=== PATIENT | male | born 1930 | race Caucasian/White ===

== ENCOUNTER → 2016-08-21 | Outpatient (REF) | payer MEDICARE, BC ==
[~2016-08-21] MED LIST: AMLO5TAB2 PO; ASPI325T PO; CHOL4PW PO; IBUPOTC PO; MICA80TA PO; MULTCAP PO; NEXI40CA PO; NYST50SS SS; PERC5TAB6 PO; PRESCAP6 PO; TRIX0.022 TOP; TYLE325T5 PO; URSO300C3 PO; [UNRECOGNIZED DRUG - CODE] PO
[2016-08-21 18:31] LABS: ANION GAP 8 MEQ/L (8-16); BLOOD UREA NITROGEN 29 MG/DL (7-18); CALCIUM LEVEL 8.7 MG/DL (8.8-10.2); CARBON DIOXIDE LEVEL 27 MEQ/L (21-32); CHLORIDE LEVEL 108 MEQ/L (98-107); CREATININE FOR GFR 1.07 MG/DL (0.70-1.30); GLOMERULAR FILTRATION RATE > 60.0 (>35); GLUCOSE, FASTING 84 MG/DL (83-110); POTASSIUM SERUM 4.5 MEQ/L (3.5-5.1); SODIUM LEVEL 143 MEQ/L (136-145)
[2016-08-21 19:20] LABS: MEAN CORPUSCULAR HEMOGLOBIN 19.4 pg (27.0-33.0); MEAN CORPUSCULAR HGB CONC 29.1 g/dl (32.0-36.5); MEAN CORPUSCULAR VOLUME 66.6 fl (80.0-96.0); RED CELL DISTRIBUTION WIDTH 16.8 % (11.5-14.5); WHITE BLOOD COUNT 3.9 K/mm3 (4.0-10.0)
== END ==
LOC: M LABSMT 17:10
PROVIDERS: ATTEND Urology
DX: N40.0 Benign prostatic hyperplasia without lower urinary tract symptoms (principal); Z12.5 Encounter for screening for malignant neoplasm of prostate

== ENCOUNTER → 2016-11-03 | Outpatient (CLI) | payer MEDICARE ==
--- NOTE | 2016-11-03 15:19 | REP ---
Right hip: Two views. History: Pain. Comparison study August 15, 2012. Findings: AP and frog-leg views of the right hip demonstrate diffuse osteopenia. Femoral head is smooth and rounded. Hip joint space is preserved. No erosive changes seen. Impression: Diffuse osteopenia. No acute bony abnormality. Signed by Humble Moreno MD 11/03/2016 05:02 P
== END ==
LOC: M WUC 13:27
PROVIDERS: ATTEND Physician Assistant
DX: M25.551 Pain in right hip (principal); M89.9 Disorder of bone, unspecified

== ENCOUNTER 2016-12-31 16:49 | Inpatient (IN) | payer MEDICARE ==
[~2016-12-31] VITALS: Ht 157.5 cm; Wt 55.7 kg
[2016-12-31] MEDS ORDERED: NS 500 ML IV ONE (18:15)
[2016-12-31 18:32] LABS: DIFF SLIDE NUMBER 164; MEAN CORPUSCULAR HEMOGLOBIN 19.5 pg (27.0-33.0); MEAN CORPUSCULAR HGB CONC 31.1 g/dl (32.0-36.5); MEAN CORPUSCULAR VOLUME 62.5 fl (80.0-96.0); PLATELET COUNT, AUTOMATED 397 k/mm3 (150-450); RED CELL DISTRIBUTION WIDTH 15.7 % (11.5-14.5); WHITE BLOOD COUNT 4.7 K/mm3 (4.0-10.0)
[2016-12-31] MEDS ORDERED: PANTOPRAZOLE 40MG INJ (PROTONIX) (C9113) IV ONE (18:45)
[2016-12-31 18:52] LABS: ALBUMIN 3.4 GM/DL (3.2-5.2); ALBUMIN/GLOBULIN RATIO 0.89 (1.00-1.93); ALKALINE PHOSPHATASE 109 U/L (45-117); ALT/SGPT 15 U/L (12-78); AMYLASE 62 U/L (25-115); ANION GAP 4 MEQ/L (8-16); AST/SGOT 9 U/L (15-37); BILIRUBIN,DIRECT < 0.1 MG/DL (0.0-0.2); BILIRUBIN,TOTAL 0.3 MG/DL (0.2-1.0); BLOOD UREA NITROGEN 34 MG/DL (7-18); CARBON DIOXIDE LEVEL 25 MEQ/L (21-32); CHLORIDE LEVEL 104 MEQ/L (98-107); CREATININE FOR GFR 1.65 MG/DL (0.70-1.30); GLOMERULAR FILTRATION RATE 42.2 (>35); GLUCOSE, FASTING 96 MG/DL (83-110); POTASSIUM SERUM 4.3 MEQ/L (3.5-5.1); SODIUM LEVEL 133 MEQ/L (136-145); TOTAL PROTEIN 7.2 GM/DL (6.4-8.2)
[2016-12-31] MEDS: NS 1,000 ML IV SCH (19:00)
[2016-12-31 19:03] LABS: EOSINOPHILS 4 % (0-5)
[2016-12-31 19:04] LABS: ANISOCYTOSIS 1+; MICROCYTOSIS 3+; POIKILOCYTOSIS 2+
[2016-12-31 19:05] LABS: OVALOCYTES 2+; SCHISTOCYTES 2+; TEAR DROP CELLS 2+
[2016-12-31 19:12] LABS: BURR CELLS 1+
--- NOTE | 2016-12-31 19:30 | REPUSA ---
CLINICAL HISTORY: AMS. TECHNIQUE: Multiple axial CT images were obtained through the brain without IV contrast material. COMMENTS: There is normal configuration of sella turcica. There are no intra or extra-axial collections. There is no mass effect or midline shift. There is no evidence of hematoma formation. No hydrocephalus is p resent. The ventricles are symmetrical. No abnormal calcifications are present. There is diffuse age-appropriate cerebellar and cerebral atrophy with proportionally dilated ventricl es and cortical sulci. There are bilateral periventricular and subcortical white matter hypolucencies compatible with chroni c microvascular disease. Otherwise, no significant focal abnormalities are seen either in the posterior fossa or supratentoria l compartment. IMPRESSION: 1. Age-appropriate cerebellar and cerebral atrophy. 2. Chronic microvascular disease. 3. No evidence of acute intracranial pathology. Thank you for your kind referral of this patient.
[2016-12-31] MEDS ORDERED: NEXI20CA PO (19:39)
[2016-12-31] MEDS ORDERED: TYLE650T35 PO (19:39)
[2016-12-31] MEDS ORDERED: NS 1,000 ML IV SCH (19:56)
[2016-12-31] MEDS ORDERED: ACETAMINOPHEN TAB 650MG DOSE (2X325MG) PO PRN (20:00)
[2016-12-31 20:25] LABS: INR 1.08
--- NOTE | 2016-12-31 21:08 | HPEPDOC ---
General Date of Admission Dec 31, 2016 at 19:56 Primary Care Physician: Jr García Collins Attending Physician: TRUPTI MENCHACA MD Chief Complaint The patient is a 86-year-old male admitted with a reason for visit of Gi Bleed. History of Present Illness 86-year-old male with past medical history of hypertension, thalassemia minor, GERD, and hx of cholangitis with subsequent ERCP, papillotomy for CBD stenosis in 2014 presented to the ER with a chief complaint of generalized weakness. The patient states that during this time he has felt increasingly lightheaded, dizzy , with mild shortness of breath. He also states that he has been having intermittent abdominal pain across the lower abdominal quadrants, 5 out of 10 in intensity with decreased appetite. He states that he has lost approximately 10 pounds in the last 6-8 weeks. He also states that he has been having loose nonbloody stools for the last few weeks. He denies any black-colored stools He denies any complaints of fevers, chills, chest pain, palpitations, or any nausea /vomiting. In the ER, the patient was noted to be significantly anemic with a hemoglobin count of 4.8. A rectal exam done in the ER revealed brown colored stool which was noted to be heme positive. The patient denied any active or otherwise overt sources of bleeding. The patient will be admitted to the hospitalist service for further evaluation and management. Home Medications Scheduled (Preservision Areds 2) 1 Cap Cap, 1 CAP PO BID, (Reported) Esomeprazole Magnesium Trihydr (Nexium) 20 Mg Cap, 20 MG PO DAILY, (Reported) Telmisartan (Micardis) 80 Mg Tab, 80 MG PO DAILY, (Reported) Ursodiol (Ursodiol) 300 Mg Cap, 300 MG PO BID, (Reported) Scheduled PRN Acetaminophen (Tylenol 8 Hour Arthritis) 650 Mg Tab, 650 MG PO Q8H PRN for PAIN, (Reported) Allergies Coded Allergies: Codeine (Verified Adverse Reaction, Mild, CONSTIPATION, 10/15/12) Past Medical History Medical History As noted in HPI. Surgical History Lumbar fusion, cholecystectomy, ERCP with papillotomy for CBD stenosis, left hip femoral pinning Family History Significant Family History: No pertinent family hx Social History * Smoker: former Smoker Alcohol: Denies Drugs: denies Review of Symptoms Other systems 10 point review of systems negative unless otherwise specified in HPI. Physical Examination General Exam: Positive: Alert, Cooperative, No Acute Distress, Other (patient appears pale on examination.) ENT Exam: Positive: Atraumatic, Other ENT (dry mucous membranes) Neck Exam: Negative: JVD Chest Exam: Positive: Clear to auscultation, Normal air movement Heart Exam: Positive: Rate Normal, Normal S1, Normal S2 Telemetry: Positive: Sinus Abdomen Exam: Positive: Soft, Negative: Tenderness Extremity Exam: Negative: Tenderness, Swelling Vital Signs Vital Signs Date Time Temp Pulse Resp B/P (MAP) Pulse Ox O2 Delivery O2 Flow Rate FiO2 12/31/16 17:39 12/31/16 16:51 98.3 69 18 94 Room Air Laboratory Data Labs 24H Laboratory Tests 2 12/31/16 18:15: Neutrophils 82H, Lymphocytes (Manual) 8L, Monocytes (Manual) 6, Eosinophils ( Manual) 4, Platelet Estimate NORMAL, Poikilocytosis 2+, Anisocytosis 1+, Microcytosis 3+, Tear Drop Cells 2+, Ovalocytes 2+, Ozark Cells 1+, Schistocytes 2+, Prothrombin Time 14.1, Prothromb Time International Ratio 1.08, Activated Partial Thromboplast Time 39.7H, Anion Gap 4L, Glomerular Filtration Rate 42.2, Lactic Acid Level 1.0, Calcium Level 8.0L, Aspartate Amino Transf (AST/SGOT) 9L , Alanine Aminotransferase (ALT/SGPT) 15, Alkaline Phosphatase 109, Total Bilirubin 0.3, Direct Bilirubin < 0.1, Total Creatine Kinase 43, Creatine Kinase MB 2.4, Creatine Kinase MB Relative Index 5.58H, Troponin I 0.09, Total Protein 7.2, Albumin 3.4, Albumin/Globulin Ratio 0.89L, Amylase Level 62, Lipase 127 CBC/BMP Laboratory Tests 12/31/16 18:15 Red Blood Count 2.45 L, Mean Corpuscular Volume 62.5 L, Mean Corpuscular Hemoglobin 19.5 L, Mean Corpuscular Hemoglobin Concent 31.1 L, Red Cell Distribution Width 15.7 H Microbiology Microbiology 12/31/16 Blood Culture, Received Pending 12/31/16 Blood Culture, Received Pending Plan / VTE VTE Prophylaxis Ordered?: Yes (SCDs) Plan Plan Acute anemia likely 2/2 GI loss Hemoglobin noted to be 4.8 Patient with a history of thalassemia minor with a baseline hemoglobin between 9 and 10 Looking back in the patient's chart it appears that the patient has had 2 EGDs in the past (2009 & 2014) by Dr. Gomez, and the results were notable for gastritis The patient last had a colonoscopy done in [address] Gomez, and this revealed nonbleeding internal hemorrhoids with diverticular disease At this point given the patient's significant drop in hemoglobin, heme positive stools, and associated weight loss--there is a concern for underlying malignancy that warrants further endoscopic investigation We will transfuse the patient 4 units Keep nothing by mouth We will order a CT scan of the abdomen/pelvis to rule out any intra-abdominal bleeding source Consult Dr. Gomez of GI in the morning for further evaluation. Acute kidney injury likely secondary to intravascular volume depletion Serum creatinine 1.65 (baseline creatinine 1.1-1.2) We will transfuse the patient 4 units of packed red blood cells Gentle IV fluid hydration ordered to continue thereafter We will hold any nephrotoxins Monitor I's and O's We'll continue to monitor the patient's BMP Borderline elevated troponin level likely 2/2 Demand Ischemia from underlying Anemia Troponin noted to be 0.9, EKG with no acute ST changes Patient without any acute complaints of chest pain at this time We will serially trend troponin markers Hypertension We will hold the patient's ARB at this time given HRAISH History of thalassemia minor Baseline hgb 9-10 Hx of cholangitis with subsequent ERCP, papillotomy for CBD stenosis in 2014 GERD IV Protonix DVT prophylaxis SCDs/TEDs This patient will be admitted under the service of Dr. Menchaca, who will begin to follow the patient on 01/01/17 at 7 AM. MICHAEL GARCIA MD Dec 31, 2016 21:08
[2016-12-31 21:30] VITALS: BP 121/60
[2016-12-31 22:15] VITALS: BP 121/60
--- NOTE | 2016-12-31 22:41 | REPUSA ---
CT of the abdomen and pelvis without contrast Clinical statement: anemia. Technique: Multiple axial CT images were obtained from the base of the lungs to the floor of the pelv is utilizing 5 mm axial slices without administration of contrast. Coronal and sagittal reconstructio ns were also obtained. Comparison: 04/06/2005. Findings: Chest: The visualized lung bases are clear. Abdomen: The kidneys are normal in size bilaterally. There is no evidence of hydronephrosis. Numerous kidney stones are seen bilaterally measuring up to 7 mm Calcifications and areas of hyperdensity are seen in the renal pelvises bilaterally. There is a simple right renal cyst. The patient is status po st cholecystectomy. There is mild iatrogenic biliary pneumatosis. The liver, spleen, pancreas, and ad renal glands are unremarkable. The aorta demonstrates normal caliber and contour. There is no abdomin al lymphadenopathy or ascites. Pelvis: The bowel is unremarkable, with no obstructive or inflammatory changes. The urinary bladder i s within normal limits. There is no pelvic lymphadenopathy or ascites. There is a low attenuation les ion within the prostate. Bones: There are no suspicious osseous abnormalities seen. Severe multilevel degenerative disc diseas e is noted throughout the lumbar spine, with levoscoliosis noted.. Moderate chronic compression fract ures are notedat L1 and L5. Impression: 1. No evidence of acute hemorrhage. 2. No obstructive or inflammatory bowel changes. 3. Bilateral nonobstructing nephrolithiasis.Bilateral nephrocalcinosis. Right renal cyst. 4. Scoliosis with severemultilevel degenerative disc disease.
[2016-12-31 23:31] VITALS: BP 101/65
[2017-01-01 03:51] VITALS: BP 122/58
[2017-01-01 04:10] LABS: MEAN CORPUSCULAR HEMOGLOBIN 19.7 pg (27.0-33.0); MEAN CORPUSCULAR VOLUME 63.5 fl (80.0-96.0); RED CELL DISTRIBUTION WIDTH 16.4 % (11.5-14.5); WHITE BLOOD COUNT 2.8 K/mm3 (4.0-10.0)
[2017-01-01 04:24] LABS: CALCIUM LEVEL 7.9 MG/DL (8.8-10.2); CREATININE FOR GFR 1.47 MG/DL (0.70-1.30); GLOMERULAR FILTRATION RATE 48.2 (>35); POTASSIUM SERUM 4.5 MEQ/L (3.5-5.1)
--- NOTE | 2017-01-01 07:49 | REP ---
CHEST X-RAY: Single view. HISTORY: Weakness. Comparison study: April 23, 2016. FINDINGS: EKG monitoring electrodes overlie the chest. The lungs are symmetrically aerated and free of infiltrate. Pleural angles are sharp. Heart is at the upper range of normal in size unchanged. Pulmonary vasculature is not increased. IMPRESSION: No acute disease. Signed by Humble Moreno MD 01/01/2017 08:29 A
[2017-01-01 07:51] VITALS: BP 124/58
[2017-01-01] MEDS: NS 1,000 ML IV SCH (08:07)
[2017-01-01] MEDS: PANTOPRAZOLE 40MG INJ (PROTONIX) (C9113) IV SCH ×2 (09:21→23:12)
[2017-01-01 11:31] VITALS: BP 100/59
--- NOTE | 2017-01-01 12:02 | IPN ---
DATE: 01/01/2017 This is an 86-year-old male who was admitted with acute anemia with a hemoglobin of 4.8. He has a history of thalassemia minor with a baseline hemoglobin between 9 and 10. He was typed and cross matched to receive 4 units of packed cells. His vital signs have remained stable. I was notified by the lab and the nursing production supervisor that there was difficulty with cross matching his blood due to antibodies. I discussed with Dr. Posadas, the hospitalist, and decision was made to have the blood sent stat to [facility] in [place], [place], and to transfer the patient to [place] so that when the blood was matched and ready he would be there and could begin immediately to receive transfusions. He had no hematochezia or melena. He was not having any hematemesis or hemoptysis. He was currently clinically stable. His heart rate was 72 to 80. His blood pressure was around 100 to 115 over 60s. I called [facility] in [place]. They had no beds. I called [facility] and I spoke with the transfer nurse Jameson who then had Dr. Brown call me. I spoke with him at approximately 1:30 a.m. He felt that the patient was stable and did not need to go at that time to a higher level of care. I discussed the need for getting him there as we were three hours away so that when the blood was ready he could get it immediately. He stated to monitor the patient and call him if the patient deteriorated and that he felt that the patient was stable and to check again in three to four hours. The patient has remained stable. The patient and his son are agreeable to have him transfer to expedite the transfusion. Will recontact [facility]. Have scheduled a repeat hemoglobin and will continue to monitor the patient closely.
--- NOTE | 2017-01-01 13:11 | IPN ---
DATE OF EXAMINATION: 01/01/2017 Overnight events, the patient was unable to receive blood products, as he was Marciano positive. Our laboratory sent his blood sample out to [place], who are working on obtaining appropriate blood products for him. I did call and request an update from them this morning. They have had a specialist come in since 1 o'clock in the morning and are working to find an appropriate match. There is no appropriate match as of yet. Efforts were made to transfer the patient to [facility] or [facility] and [facility] in [place] in order to have the patient be closer to the blood products that we are hoping will be made available in the future so he can receive them as soon as possible. However, all three of these facilities declined to accept this patient, with them not having available beds or not seeing an indication for a higher level of care. SUBJECTIVE: The patient reports that he is feeling quite well. He tells me that his symptoms are improved and that he is not in any difficulty, not having any shortness of breath. No headache, dizziness, nausea, or vomiting while he is laying at rest. He denies any other complaints other than he is frustrated that he has not received blood yet. OBJECTIVE: VITAL SIGNS: Temperature 98. Pulse 82. Respiratory rate 18. Blood pressure (BP) 124/58. Oxygen (O2) saturation 93% on room air. GENERAL: He is a pale elderly man. Laying flat in bed. In no distress. HEENT: He has conjunctival pallor. Moist mucous membranes. No elevation in central venous pressure (CVP). CARDIOVASCULAR EXAMINATION: S1, S2. Regular. He is not tachycardic. RESPIRATORY EXAMINATION: Is clear. His orthostatics were positive. ABDOMINAL EXAMINATION: Is scaphoid. EXTREMITIES: No clubbing, cyanosis, or edema. LABORATORY STUDIES: WBC 2.8, hemoglobin 4.3 down from 4.8, hematocrit 13.9, platelet count 352. Chemistry panel: Sodium 141, potassium 4.5, chloride 11, bicarbonate 28, BUN 31, creatinine 1.4 down from 1.6. Two sets of cardiac enzymes were negative. Lipase was within normal limits. INR is 1.0. Blood cultures were drawn and are pending. IMAGING: The patient did have a CT scan of the abdomen and pelvis, which revealed no evidence of acute hemorrhage, no obstructive or inflammatory bowel changes, bilateral nonobstructing nephrolithiasis, scoliosis. The patient had a chest x-ray that revealed no acute disease. He did have a CT scan of the head that revealed age-appropriate cerebellar and cerebral atrophy, chronic microvascular disease. No evidence of acute intracranial pathology. ASSESSMENT AND PLAN: This is an 86-year-old man with a history of thalassemia presenting now with what most likely is gastrointestinal (GI) bleed and symptomatic anemia. PROBLEMS: 1. Symptomatic anemia and likely gastrointestinal bleed. The patient is occult stool for blood positive. He has had two esophagogastroduodenoscopies (EGDs) and colonoscopy by Dr. Gomez in the past. Most recently, in 2014. I did speak with Dr. Goemz this morning, who has agreed to see the patient in consultation. He has a history of gastritis and, as such, he is on a proton pump inhibitor (PPI) intravenous (IV) twice a day. His orthostatics are positive. As such, we will keep him on bedrest and laying flat. He is on normal saline. We are unable to provide him with blood products, but we are working on obtaining these and appropriate match through the [facility] in [place]. As soon as these are available and can be transported to us, he will receive them. With activity, he is significantly symptomatic with his anemia, given his advanced age. His condition and the longer he goes without blood is concerning. I did speak with his son, Chalino, regarding this, as well. Should he begin to feel symptomatic or have any evidence of acute hemorrhage, he would likely require uncrossed matched blood transfusion, and the risks of this were discussed with both him and his son. 2. Acute kidney injury, improving with fluid resuscitation. Will continue with IV fluids. 3. Hypertension. We are holding his angiotensin receptor destiney (ARB), given acute kidney injury. 4. History of thalassemia minor. The patient's baseline hemoglobin is approximately 9. At this time, he has acute on chronic anemia likely secondary to acute blood loss. 5. Deep venous thrombosis (DVT) prophylaxis. Sequentials and thromboembolic deterrents (TEDs). No pharmacological agents secondary to ongoing bleeding.
[2017-01-01 16:00] VITALS: BP 114/58
[2017-01-01] MEDS ORDERED: PANTOPRAZOLE 40MG INJ (PROTONIX) (C9113) IV SCH (18:00)
[2017-01-01] MEDS: diphenhydrAMINE INJ 50MG/ML VIAL (J1200) IV ONE ×2 (20:30→23:12)
[2017-01-01] MEDS ORDERED: diphenhydrAMINE INJ 50MG/ML VIAL (J1200) As Ordered ONE (20:32)
[2017-01-01] MEDS ORDERED: methylPREDNISolone INJ 125 MG/2 ML VIAL (J2930) As Ordered ONE (20:32)
[2017-01-01 23:00] VITALS: BP 99/59
--- NOTE | 2017-01-01 23:00 | REPUSA ---
CT of the head Clinical history: altered mental status. Protocol: Multiple axial CT images obtained with 5 mm slice thickness were obtained through the head without administration of contrast. Comparison: 12/31/2016. Findings: The ventricles and sulci are symmetric but prominent in size bilaterally. There are periven tricular areas of low attenuation throughout the deep white matter. There is no evidence of acute hem orrhage or infarct. There is no midline shift, mass effect, or extra-axial fluid collection. The osse ous structures are unremarkable. The visualized paranasal sinuses and mastoid air cells are clear. Impression: No acute hemorrhage or infarct. 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
[2017-01-01] MEDS ORDERED: methylPREDNISolone INJ 125 MG/2 ML VIAL (J2930) IV ONE (23:15)
[2017-01-02] VITALS (8 sets, daily range): BP systolic 94–123; BP diastolic 46–60
[2017-01-02 05:41] LABS: MEAN CORPUSCULAR HEMOGLOBIN 22.5 pg (27.0-33.0); MEAN CORPUSCULAR HGB CONC 32.8 g/dl (32.0-36.5); MEAN CORPUSCULAR VOLUME 68.6 fl (80.0-96.0); RED CELL DISTRIBUTION WIDTH 22.9 % (11.5-14.5); WHITE BLOOD COUNT 5.6 K/mm3 (4.0-10.0)
[2017-01-02 06:06] LABS: CALCIUM LEVEL 7.8 MG/DL (8.8-10.2); CREATININE FOR GFR 1.46 MG/DL (0.70-1.30); GLOMERULAR FILTRATION RATE 48.6 (>35); POTASSIUM SERUM 4.8 MEQ/L (3.5-5.1)
[2017-01-02] MEDS ORDERED: FAMOTIDINE INJ 20MG/2ML VIAL (S0028) IVP ONE (08:00)
[2017-01-02] MEDS ORDERED: methylPREDNISolone INJ 125 MG/2 ML VIAL (J2930) IV ONE (08:00)
[2017-01-02] MEDS ORDERED: diphenhydrAMINE INJ 50MG/ML VIAL (J1200) IV ONE (08:00)
--- NOTE | 2017-01-02 09:04 | ECGEPIP ---
Stationary ECG Study [facility] - ED Test Date: 2016-12-31 Pat Name: JESUS MATA Department: Room: - Gender: M [facility] Programmer: JKoby : [id number] Requested By: Mynor Blackwell Order Number: [id number] Reading MD: Ingrid Perrin Measurements Intervals [place] Rate: 73 P: 35 FL: 154 QRS: 21 QRSD: 98 T: 32 QT: 380 QTc: 421 Interpretive Statements SINUS RHYTHM POSSIBLE LEFT ATRIAL ENLARGEMENT NSTTW ABNORMALITY LESS ECTOPY COMPARED 03/21/16 Electronically Signed On 01-02-2017 9:04:33 EDT by Ingrid Perrin
[2017-01-02] MEDS: PANTOPRAZOLE 40MG INJ (PROTONIX) (C9113) IV SCH ×2 (09:19→21:38)
[2017-01-02] MEDS ORDERED: FUROSEMIDE 40 MG/4 ML VIAL (J1940) IV ONE (09:30)
--- NOTE | 2017-01-02 10:02 | CR ---
DATE OF CONSULTATION: 01/01/2017 This is an 86-year-old white male who is admitted to [facility] on 12/31 for evaluation of anemia and shortness of breath. The patient has a multiple medical history, including hypertension, thalassemia minor, reflux and a history of cholangitis, status post ERCP in 2014. The patient had common bile duct stones and papillotomy and bile duct clearing was performed. At that time, the patient also had an upper endoscopy to evaluate a history of melena and <<0:52>> gastritis. His last colonoscopy was in 2009, which was normal except for hemorrhoids and diverticulosis. No tumors or masses were seen. The patient presents now with increasing lightheadedness, dizziness, shortness of breath and has intermittent epigastric pain. The patient apparently had a decreased appetite. Over the last 8 weeks, she has lost approximately 6 to 8 pounds. There is no history of melena, hematochezia or bright red blood per rectum. No hematemesis. No fevers, night sweats or shaking chills. The patient normally runs a hemoglobin of 10 due to thalassemia. Hemoglobin currently is 4.3. The patient was heme positive in the emergency room. The patient is being seen for further evaluation of his anemia. CURRENT MEDICATIONS: Include Nexium and ursodiol for his history of common bile duct stones. ALLERGIES: CODEINE: PAST SURGICAL HISTORY Includes: 1. Lumbar fusion. 2. Cholecystectomy. 3. ERCP and papillotomy. 4. Left hip femoral pinning. FAMILY HISTORY: Noncontributory to the above problems. SOCIAL HISTORY: Negative. REVIEW OF SYSTEMS: 10-point review of systems was negative to the above medical problem. PHYSICAL EXAMINATION: GENERAL: Thin, white male in no obvious acute distress. Appears stated age. CHEST: Clear to auscultation. CARDIOVASCULAR EXAM: Showed regular rhythm. No murmurs or gallops. Normal physiological split, S1, S2. ABDOMEN: Soft, nontender. No masses, guarding, rebound, hepatosplenomegaly. Bowel sounds positive. DIAGNOSTIC STUDIES: Showed labs of hemoglobin of 4.3, hematocrit of 13.9, platelets of the 352,000. Coagulation is normal. Chemistry was normal on admission. Amylase, lipase were normal. Albumin is low at 3.4. Liver functions are normal. BUN was 31, creatinine is 1.47. The patient had abdominal CT, which was negative for any pathology. CT of the head on 12/31 was also performed, which was negative for any major pathology. ANALYSIS: 1. Anemia of unknown etiology. At the present time, the plan will be to wait for the patient to receive some blood prior to setting him up for upper endoscopy on 01/02/2070 possible differential diagnosis would be gastric ulcer versus gastric tumor and possible ulcer esophagitis. PLAN: As above.
--- NOTE | 2017-01-02 18:47 | IPNPDOC ---
Subjective Date Seen The patient was seen on 01/02/17. Subjective Chief Complaint/HPI The patient is a 86-year-old male admitted with a reason for visit of Gi Bleed. Events since last encounter no acute events overnight. temp of 100 during transfusion and sob overnight. cxr neg, transfusion reaction neg, given solumedrol and benadryl. Currently, denied cp, abd pain, sbo, n/v. General: Reports: Malaise Constitutional: Denies: Chills, Fever Eyes: Denies: Pain ENT: Denies: Head Aches Skin: Denies: Rash, Lesions Pulmonary: Denies: Dyspnea, Cough Cardiovascular: Denies: Chest Pain, Palpitations Gastrointestinal: Denies: Nausea, Vomiting Objective Physical Examination General Exam: Positive: Alert, Cooperative, No Acute Distress, Other (patient appears pale on examination.) Eye Exam: Positive: PERRLA ENT Exam: Positive: Atraumatic, Other ENT (dry mucous membranes) Neck Exam: Negative: JVD Chest Exam: Positive: Clear to auscultation, Normal air movement Heart Exam: Positive: Rate Normal, Normal S1, Normal S2 Telemetry: Positive: Sinus Abdomen Exam: Positive: Soft, Negative: Tenderness Extremity Exam: Negative: Tenderness, Swelling Assessment /Plan Assessment 86-year-old male with past medical history of hypertension, thalassemia minor, GERD, and hx of cholangitis with subsequent ERCP, papillotomy for CBD stenosis in 2014 presented to the ER with a chief complaint of generalized weakness found anemia with FOBT + GI bleed Problems (1) GI bleeding Status: Acute Problem Text: FOBT +, Dr Gomez consulted. h/o transfusion reaction, blood order from [place]. PPI BID s/p 1 U PRBC given given lasix, bendary, solumedrol, pepcid, tylenol prior to transfusion, 2U PRBC today serial hh (2) Anemia Status: Acute Problem Text: 2/2 to gi bleed, likely slow transfusion reaction history, d/w Dr Godinez pre-transfusion meds as above LDH haptoglobin, smears f/u hh (3) GERD (gastroesophageal reflux disease) Status: Chronic Problem Text: ppi (4) Hypertension Status: Chronic Problem Text: hold med given HARISH (5) Thalassemia trait Status: Chronic Problem Text: chronic anemia, baseline hgb 9 (6) HARISH (acute kidney injury) Problem Text: f/u Cr, bun, IVF Plan/VTE VTE Prophylaxis Ordered?: Yes (SCDs) Disposition EGD, clinical improvement VS, I&O, 24H, Fishbone Vital Signs/I&O Vital Signs Date Time Temp Pulse Resp B/P (MAP) Pulse Ox O2 Delivery O2 Flow Rate FiO2 01/02/17 16:01 Nasal Cannula 2.0 01/02/17 16:00 97.8 59 18 100/51 (67) 95 I&O- Last 24 Hours up to 6 AM 01/02/17 06:00 Intake Total 855 ml Output Total 950 ml Balance -95 ml Laboratory Data 24H LABS Laboratory Tests 2 01/01/17 20:46: Total Creatine Kinase 72, Creatine Kinase MB 3.1, Creatine Kinase MB Relative Index 4.30H, Troponin I 0.21#H 01/02/17 05:08: Anion Gap 7L, Glomerular Filtration Rate 48.6, Blood Urea Nitrogen 30H, Creatinine 1.46H, Sodium Level 140, Potassium Level 4.8, Chloride Level 110H, Carbon Dioxide Level 23, Calcium Level 7.8L 01/02/17 18:01: CBC/BMP Laboratory Tests 01/01/17 20:45 01/02/17 05:08 Red Blood Count 2.44 L, Mean Corpuscular Volume 68.6 #L, Mean Corpuscular Hemoglobin 22.5 L, Mean Corpuscular Hemoglobin Concent 32.8, Red Cell Distribution Width 22.9 H, Calcium Level 7.8 L Microbiology Microbiology 12/31/16 Blood Culture - Preliminary, Resulted No Growth after 48 hours. All Specime... 12/31/16 Blood Culture - Preliminary, Resulted No Growth after 48 hours. All Specime... 01/01/17 Urine Culture - Final, Complete GABINO MCKINNEY MD Jan 02, 2017 18:47
[2017-01-02] MEDS: NS 1,000 ML IV SCH ×2 (20:03→21:00)
[2017-01-02 21:34] LABS: REASON FOR REVIEW COMPREHENSIVE REVIEW
[2017-01-03] VITALS (10 sets, daily range): BP systolic 100–134; BP diastolic 53–93
[2017-01-03 05:24] LABS: MEAN CORPUSCULAR HGB CONC 34.1 g/dl (32.0-36.5); MEAN CORPUSCULAR VOLUME 73.4 fl (80.0-96.0); RED CELL DISTRIBUTION WIDTH 22.9 % (11.5-14.5); WHITE BLOOD COUNT 5.6 K/mm3 (4.0-10.0)
[2017-01-03 05:27] LABS: CALCIUM LEVEL 7.9 MG/DL (8.8-10.2); CREATININE FOR GFR 1.38 MG/DL (0.70-1.30); GLOMERULAR FILTRATION RATE 51.9 (>35); POTASSIUM SERUM 4.2 MEQ/L (3.5-5.1)
[2017-01-03] MEDS ORDERED: FAMOTIDINE INJ 20MG/2ML VIAL (S0028) IVP SCH (07:00)
[2017-01-03] MEDS ORDERED: diphenhydrAMINE INJ 50MG/ML VIAL (J1200) IV SCH (07:00)
[2017-01-03] MEDS ORDERED: methylPREDNISolone INJ 40 MG/1 ML VIAL (J2920) IV SCH (07:00)
[2017-01-03] MEDS ORDERED: FUROSEMIDE 20 MG/2 ML VIAL (J1940) IV SCH (07:00)
[2017-01-03] MEDS: PANTOPRAZOLE 40MG INJ (PROTONIX) (C9113) IV SCH ×2 (08:19→20:16)
[2017-01-03] MEDS ORDERED: PROPOFOL 200 MG/20 ML VIAL As Ordered ONE (14:40)
[2017-01-03] MEDS: NS 1,000 ML IV SCH (15:24)
--- NOTE | 2017-01-03 17:30 | IPNPDOC ---
Subjective Date Seen The patient was seen on 01/03/17. Subjective Chief Complaint/HPI The patient is a 86-year-old male admitted with a reason for visit of Gi Bleed. Events since last encounter No melena, denied cp, sob, abd pain. n/v, reported hungry. strength improved General: Denies: Chills Constitutional: Denies: Chills, Fever Eyes: Denies: Pain, Vision change ENT: Denies: Head Aches Skin: Denies: Rash, Lesions Pulmonary: Denies: Dyspnea, Cough Cardiovascular: Denies: Chest Pain, Palpitations Gastrointestinal: Denies: Nausea, Vomiting, Abdominal Pain Objective Physical Examination General Exam: Positive: Alert, Cooperative, No Acute Distress, Other (patient appears pale on examination.) Eye Exam: Positive: PERRLA ENT Exam: Positive: Atraumatic, Other ENT (dry mucous membranes) Neck Exam: Negative: JVD Chest Exam: Positive: Clear to auscultation, Normal air movement Heart Exam: Positive: Rate Normal, Normal S1, Normal S2 Telemetry: Positive: Sinus Abdomen Exam: Positive: Soft, Negative: Tenderness Extremity Exam: Negative: Tenderness, Swelling Assessment /Plan Assessment 86-year-old male with past medical history of hypertension, thalassemia minor, GERD, and hx of cholangitis with subsequent ERCP, papillotomy for CBD stenosis in 2014 presented to the ER with a chief complaint of generalized weakness found anemia with FOBT + GI bleed Problems (1) GI bleeding Status: Acute Problem Text: FOBT +, Dr Gomez consulted. h/o transfusion reaction, blood order from [place]. PPI BID s/p 3 U PRBC given given lasix, bendary, solumedrol, pepcid, tylenol prior to transfusion, will given 1U PRBC today for a total of 4 U serial hh s/p EGD showed gastritis regular diet (2) Anemia Status: Acute Problem Text: 2/2 to gi bleed, likely slow transfusion reaction history, d/w Dr Godinez pre-transfusion meds as above LDH haptoglobin, smears f/u hh (3) GERD (gastroesophageal reflux disease) Status: Chronic Problem Text: ppi (4) Hypertension Status: Chronic Problem Text: hold med given HARISH (5) Thalassemia trait Status: Chronic Problem Text: chronic anemia, baseline hgb 9 (6) HARISH (acute kidney injury) Problem Text: f/u Cr, bun, IVF Plan/VTE VTE Prophylaxis Ordered?: Yes (SCDs) Disposition pending stable hh, PT and final gi Rec VS, I&O, 24H, Fishbone Vital Signs/I&O Vital Signs Date Time Temp Pulse Resp B/P (MAP) Pulse Ox O2 Delivery O2 Flow Rate FiO2 01/03/17 16:15 97.4 73 20 128/60 (82) 96 Room Air 01/03/17 14:55 2.0 I&O- Last 24 Hours up to 6 AM 01/03/17 06:00 Intake Total 2670 ml Output Total 1450 ml Balance 1220 ml Laboratory Data 24H LABS Laboratory Tests 2 01/02/17 18:01: Differential Slide Review Report, Differential Pathologist's Review COMPREHENSIVE REVIEW, Peripheral Blood Smear Path Consult PERIPHERAL SMEAR, Lactate Dehydrogenase 257H 01/03/17 04:49: Anion Gap 7L, Glomerular Filtration Rate 51.9, Blood Urea Nitrogen 37H, Creatinine 1.38H, Sodium Level 141, Potassium Level 4.2, Chloride Level 111H, Carbon Dioxide Level 23, Calcium Level 7.9L CBC/BMP Laboratory Tests 01/02/17 18:01 01/03/17 04:49 Red Blood Count 3.14 L, Mean Corpuscular Volume 73.4 L, Mean Corpuscular Hemoglobin 25.0 L, Mean Corpuscular Hemoglobin Concent 34.1, Red Cell Distribution Width 22.9 H, Calcium Level 7.9 L 01/03/17 15:48 Microbiology Microbiology 12/31/16 Blood Culture - Preliminary, Resulted No Growth after 48 hours. All Specime... 12/31/16 Blood Culture - Preliminary, Resulted No Growth after 48 hours. All Specime... 01/01/17 Urine Culture - Final, Complete GABINO MCKINNEY MD Jan 03, 2017 17:30
[2017-01-04 04:00] VITALS: BP 108/57
[2017-01-04 05:12] LABS: MEAN CORPUSCULAR HEMOGLOBIN 25.9 pg (27.0-33.0); MEAN CORPUSCULAR HGB CONC 34.6 g/dl (32.0-36.5); WHITE BLOOD COUNT 3.9 K/mm3 (4.0-10.0)
[2017-01-04 05:27] LABS: CALCIUM LEVEL 7.7 MG/DL (8.8-10.2); CREATININE FOR GFR 1.44 MG/DL (0.70-1.30); GLOMERULAR FILTRATION RATE 49.4 (>35); POTASSIUM SERUM 3.8 MEQ/L (3.5-5.1)
[2017-01-04] MEDS: NS 1,000 ML IV SCH (06:13)
[2017-01-04 08:00] VITALS: BP 150/62
[2017-01-04] MEDS: PANTOPRAZOLE 40MG INJ (PROTONIX) (C9113) IV SCH (08:30)
[2017-01-04] MEDS: SENOKOT S TAB PO SCH ×2 (08:30→22:18)
[2017-01-04] MEDS: TELMISARTAN 20 MG TAB PO SCH (10:31)
[2017-01-04 12:00] VITALS: BP 128/60
[2017-01-04 15:25] VITALS: BP 144/78
[2017-01-04 16:30] VITALS: BP 119/57
--- NOTE | 2017-01-04 17:29 | IPNPDOC ---
Subjective Date Seen The patient was seen on 01/04/17. Subjective Chief Complaint/HPI The patient is a 86-year-old male admitted with a reason for visit of Gi Bleed. Events since last encounter no acute events overnight, reported not liking the food, wanted to be discharged. Denied cp/abd pain/v/n/ sob, f/c Constitutional: Denies: Chills, Fever Skin: Denies: Rash, Lesions Pulmonary: Denies: Dyspnea, Cough Cardiovascular: Denies: Chest Pain, Palpitations Gastrointestinal: Denies: Nausea, Vomiting, Abdominal Pain, Diarrhea, Constipation Objective Physical Examination General Exam: Positive: Alert, Cooperative, No Acute Distress Eye Exam: Positive: PERRLA ENT Exam: Positive: Atraumatic, Other ENT (dry mucous membranes) Neck Exam: Negative: JVD Chest Exam: Positive: Clear to auscultation, Normal air movement Heart Exam: Positive: Rate Normal, Normal S1, Normal S2 Telemetry: Positive: Sinus Abdomen Exam: Positive: Soft, Negative: Tenderness Extremity Exam: Negative: Tenderness, Swelling Assessment /Plan Assessment 86-year-old male with past medical history of hypertension, thalassemia minor, GERD, and hx of cholangitis with subsequent ERCP, papillotomy for CBD stenosis in 2014 presented to the ER with a chief complaint of generalized weakness found anemia with FOBT + GI bleed Problems (1) GI bleeding Status: Acute Problem Text: FOBT +, Dr Gomez consulted. h/o transfusion reaction, blood order from [place]. PPI BID s/p 4 U PRBC given given lasix, bendary, solumedrol, pepcid, tylenol prior to transfusion, serial hh s/p EGD showed gastritis regular diet likely DC once pass pt (2) Anemia Status: Acute Problem Text: 2/2 to gi bleed, likely slow transfusion reaction history, d/w Dr Godinez pre-transfusion meds as above LDH haptoglobin, smears f/u hh (3) GERD (gastroesophageal reflux disease) Status: Chronic Problem Text: ppi (4) Hypertension Status: Chronic Problem Text: initally held, Micardis restarted (5) Thalassemia trait Status: Chronic Problem Text: chronic anemia, baseline hgb 9 (6) HARISH (acute kidney injury) Problem Text: f/u Cr, bun, IVF Plan/VTE VTE Prophylaxis Ordered?: Yes (SCDs) Disposition pending stable hh, and PT, d/w Dr Gomez VS, I&O, 24H, Fishbone Vital Signs/I&O Vital Signs Date Time Temp Pulse Resp B/P (MAP) Pulse Ox O2 Delivery O2 Flow Rate FiO2 01/04/17 15:25 98.0 80 18 144/78 (100) 98 Room Air 01/03/17 14:55 2.0 I&O- Last 24 Hours up to 6 AM 01/04/17 06:00 Intake Total 2160 ml Output Total 1100 ml Balance 1060 ml Laboratory Data 24H LABS Laboratory Tests 2 01/04/17 04:33: Anion Gap 5L, Glomerular Filtration Rate 49.4, Blood Urea Nitrogen 39H, Creatinine 1.44H, Sodium Level 142, Potassium Level 3.8, Chloride Level 111H, Carbon Dioxide Level 26, Calcium Level 7.7L CBC/BMP Laboratory Tests 01/04/17 04:33 Red Blood Count 3.20 L, Mean Corpuscular Volume 75.0 L, Mean Corpuscular Hemoglobin 25.9 L, Mean Corpuscular Hemoglobin Concent 34.6, Red Cell Distribution Width 23.0 H, Calcium Level 7.7 L 01/04/17 12:08 Microbiology Microbiology 12/31/16 Blood Culture - Preliminary, Resulted No Growth after 72 hours. All specime... 12/31/16 Blood Culture - Preliminary, Resulted No Growth after 72 hours. All specime... 01/01/17 Urine Culture - Final, Complete GABINO MCKINNEY MD Jan 04, 2017 17:29
[2017-01-04 22:00] VITALS: BP 112/58
[2017-01-04] MEDS: PANTOPRAZOLE 40MG TAB (PROTONIX) PO SCH (22:18)
[2017-01-05 06:00] VITALS: BP 112/62
[2017-01-05 06:24] LABS: MEAN CORPUSCULAR HEMOGLOBIN 25.8 pg (27.0-33.0); MEAN CORPUSCULAR HGB CONC 34.7 g/dl (32.0-36.5); MEAN CORPUSCULAR VOLUME 74.3 fl (80.0-96.0); RED CELL DISTRIBUTION WIDTH 23.8 % (11.5-14.5); WHITE BLOOD COUNT 2.9 K/mm3 (4.0-10.0)
[2017-01-05 06:34] LABS: ANION GAP 6 MEQ/L (8-16); BLOOD UREA NITROGEN 30 MG/DL (7-18); CALCIUM LEVEL 8.1 MG/DL (8.8-10.2); CARBON DIOXIDE LEVEL 26 MEQ/L (21-32); CHLORIDE LEVEL 109 MEQ/L (98-107); CREATININE FOR GFR 1.06 MG/DL (0.70-1.30); GLOMERULAR FILTRATION RATE > 60.0 (>35); GLUCOSE, FASTING 91 MG/DL (83-110); SODIUM LEVEL 141 MEQ/L (136-145)
[2017-01-05] MEDS: SENOKOT S TAB PO SCH (08:30)
[2017-01-05] MEDS: TELMISARTAN 20 MG TAB PO SCH (08:30)
[2017-01-05] MEDS: PANTOPRAZOLE 40MG TAB (PROTONIX) PO SCH (08:30)
[2017-01-05] MEDS ORDERED: MIRALAX *UNIT DOSE* 17GM PACKET PO SCH (09:00)
[2017-01-05] MEDS ORDERED: SENN1TAB2 PO (10:32)
[2017-01-05] MEDS ORDERED: MAGNESIUM CITRATE 300 ML BTL PO ONE (13:45)
[2017-01-05 14:00] VITALS: BP 104/58
--- NOTE | 2017-01-06 03:13 | DSES ---
DATE OF ADMISSION: 12/31/2016 DATE OF DISCHARGE: 01/05/2017 PRIMARY CARE PROVIDER: Dr. García. FINAL DIAGNOSES: 1. Fecal occult positive gastrointestinal (GI) bleed with symptomatic severe anemia. 2. Metabolic encephalopathy on presentation. 3. Gastroesophageal reflux disease (GERD). 4. Hypertension. 5. Thalassemia minor. 6. Acute kidney injury (HARISH). 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 Patient stated that during this time he has increasing lightheadedness, dizziness and some shortness of breath. He also stated that he has been having intermittent abdominal pain across the lower abdomen quadrant, was 5/10 pain intensity with decrease in appetite. He states that he has lost approximately 10 pounds in the past 6-8 weeks. He also stated that he has been having loose, nonbloody stool for the past few weeks. Denies any dark colored stool and denies any complaint of fevers, chills, chest pain, palpitations or any nausea, vomiting. In the emergency room, patient was found to have a hemoglobin of 4.8. Fecal occult was positive in the emergency room. Subsequently, patient was admitted. Four units of blood were requested from [place]. Unfortunately, because of patient's multiple antibodies, blood transfusion was delayed for about a day and a half. Fortunately, patient has been hemodynamically stable. Otherwise patient will have to be given uncrossed blood. In between attempt was made to transfer the patient to [place], but the transfer was unsuccessful and was refused. As per physicians at [place], bringing the patient 2 hours closer for a transfusion of blood that they do not even have is not a reason for transfer. Subsequently, patient was kept at [facility]. Finally blood arrived. Right after 1 unit of blood, patient developed some temperature elevations, as well as shortness of breath. Chest x-ray was done. That blood was sent for transfusion reaction analysis, which were negative. Subsequently, patient was given Solu-Medrol, Benadryl and further transfusion of blood was accompanied with pretreatment of Tylenol, Lasix, Solu-Medrol, Pepcid, and Benadryl. Patient tolerated the further transfusion with no complication. A total of 4 units of blood was given. Esophagogastroduodenoscopy (EGD) was done Dr. Gomez showing gastritis. Patient's hemoglobin and hematocrit remained stable. Patient was also having constipation. Bowel regimen has been given. Case was discussed with Dr. Gomez. As per Dr. Gomez, patient can be discharged for further care as outpatient. Patient passed physical therapy, tolerating oral, able to make bowel movements, ready for discharge for further care as outpatient and possible outpatient colonoscopy. PHYSICAL EXAMINATION: VITAL SIGNS: Temperature 99.5, pulse 69, respirations 18, blood pressure 112/62, pulse oximetry 96% on room air. GENERAL: Patient comfortable in no acute distress. HEENT: Normocephalic, atraumatic, frail. PULMONARY: Bilaterally clear to auscultation. CARDIAC: Regular rate and rhythm. Normal S1, S2. ABDOMEN: Soft, nontender, positive bowel sounds. EXTREMITIES: No edema bilateral lower extremities. LABORATORY: WBC 2.9, hemoglobin and hematocrit 8.7/25, platelets 218. Chemistry: Sodium 141, potassium 4, chloride 109, bicarbonate 26, BUN 30, creatinine 1.06. DISCHARGE MEDICATIONS: - senna-S 8.6/50 mg one tablet by mouth twice a day - acetaminophen 650 mg by mouth every 8 hours as needed - Nexium 20 mg by mouth daily - Micardis 80 mg by mouth daily - Ursodiol 300 mg by mouth twice a day DISCHARGE INSTRUCTIONS: Patient instructed to followup with primary care provider in 7 days. Followup with gastroenterology in 10 days for possible colonoscopy. Return to the hospital if symptoms worsen.
--- NOTE | 2017-01-12 15:19 | REP ---
Clinical: Crackles. Wheezing. Comparison: 12/31/2016. Findings: Mediastinum and cardiac silhouette are within normal limits and stable. Lung meng demonstrate chronic interstitial changes. No obvious focal consolidation, effusion, or pneumothorax. Skeletal structures demonstrate age-related degenerative change. Impression: Chronic changes similar to prior examination. No obvious acute cardiopulmonary process. Signed by Gopal Garrett MD 01/12/2017 03:11 P
== END 2017-01-05 16:02 | disposition home health service (06) | DRG 377 ==
LOC: M ED 18:17 → M ED INP 19:56 → M PCU 22:10 → M MSPAV 01-04 18:25
PROVIDERS: ADMIT Internal Medicine; ATTEND Internal Medicine
PROC: 30233N1 Transfusion of Nonautologous Red Blood Cells into Peripheral Vein, Percutaneous Approach (ICD-10-PCS; 2017-01-01)
PROC: 0DJ08ZZ Inspection of Upper Intestinal Tract, Via Natural or Artificial Opening Endoscopic (ICD-10-PCS; principal; 2017-01-03 14:15)
DX: K92.2 Gastrointestinal hemorrhage, unspecified (principal); G93.41 Metabolic encephalopathy; N17.9 Acute kidney failure, unspecified; D56.3 Thalassemia minor; K21.9 Gastro-esophageal reflux disease without esophagitis; I10 Essential (primary) hypertension; Z79.899 Other long term (current) drug therapy; Z88.5 Allergy status to narcotic agent; Z90.49 Acquired absence of other specified parts of digestive tract; Z87.891 Personal history of nicotine dependence; T80.89XA Other complications following infusion, transfusion and therapeutic injection, initial encounter; K29.70 Gastritis, unspecified, without bleeding

== ENCOUNTER → 2017-01-18 | Outpatient (REF) | payer MEDICARE ==
[~2017-01-18] MED LIST changes: +CARA1TAB6 PO; +CYCL5TAB PO; +NEXI20CA PO; +PERC5TAB12 PO; -PERC5TAB6 PO; +SENN1TAB2 PO; +TYLE500T78 PO; +TYLE650T35 PO
== END ==
LOC: M LAB REF 16:47
PROVIDERS: ATTEND Nurse Practitioner Adult Health
DX: N18.3 Chronic kidney disease, stage 3 (moderate) (principal)

== ENCOUNTER 2017-01-19 08:56 | Outpatient (CLI) | payer MEDICARE ==
[~2017-01-19] VITALS: Ht 157.5 cm; Wt 55.7 kg
[~2017-01-19 08:56] MED LIST changes: +ACETAMINOPHEN TAB 650MG DOSE (2X325MG) PO SCH; -CARA1TAB6 PO; -CYCL5TAB PO; -TYLE500T78 PO; +diphenhydrAMINE 25 MG CAP PO SCH
[2017-01-19] MEDS ORDERED: TYLE500T78 PO (10:16)
[2017-01-19] MEDS ORDERED: CYCL5TAB PO (10:16)
[2017-01-19] MEDS ORDERED: CARA1TAB6 PO (10:16)
[2017-01-19] MEDS ORDERED: ACETAMINOPHEN TAB 650MG DOSE (2X325MG) PO ONE ×2 (13:45→16:40)
[2017-01-19] MEDS ORDERED: diphenhydrAMINE 25 MG CAP PO ONE (13:45)
== END 2017-01-19 18:55 | disposition home or self-care (01) ==
LOC: M INFU 08:56 → M MS5PR 16:45 → M INFU 18:55
PROVIDERS: ATTEND Nurse Practitioner Adult Health
DX: D64.9 Anemia, unspecified (principal); T80.89XA Other complications following infusion, transfusion and therapeutic injection, initial encounter; Z98.1 Arthrodesis status; Z87.891 Personal history of nicotine dependence; Z79.899 Other long term (current) drug therapy
CPT/HCPCS: 36415; 36430; 86850; 86880; 86920; G0378; P9016

== ENCOUNTER → 2017-01-21 | Outpatient (CLI) | payer MEDICARE ==
[~2017-01-21] MED LIST changes: -ACETAMINOPHEN TAB 650MG DOSE (2X325MG) PO SCH; +CARA1TAB6 PO; +CYCL5TAB PO; +TYLE500T78 PO; -diphenhydrAMINE 25 MG CAP PO SCH
[2017-01-21 18:44] LABS: ADD MORPHOLOGY? YES; BASO # 0.1 K/mm3 (0.0-0.2); BASO % 2.8 % (0.0-1.0); EOS # 0.1 K/mm3 (0.0-0.50); EOS % 1.9 % (0.0-3.0); LARGE UNSTAINED CELL # 0.2 K/mm3 (0.0-0.4); LARGE UNSTAINED CELL % 4.2 % (0.0-4.0); LYMPH # 0.8 K/mm3 (1.5-4.5); LYMPH % 16.3 % (24.0-44.0); MEAN CORPUSCULAR HEMOGLOBIN 25.8 pg (27.0-33.0); MEAN CORPUSCULAR HGB CONC 32.1 g/dl (32.0-36.5); MEAN CORPUSCULAR VOLUME 80.6 fl (80.0-96.0); MONO # 0.4 K/mm3 (0.0-0.8); MONO % 8.7 % (0.0-5.0); NEUTROPHILS # 3.2 K/mm3 (1.8-7.7); PLATELET COUNT, AUTOMATED 246 k/mm3 (150-450); RED CELL DISTRIBUTION WIDTH 24.2 % (11.5-14.5); WHITE BLOOD COUNT 4.8 K/mm3 (4.0-10.0)
[2017-01-21 19:13] LABS: ACANTHOCYTES 1+; ANISOCYTOSIS 2+; HELMET CELLS 1+; HYPOCHROMASIA 1+; MICROCYTOSIS 2+; OVALOCYTES 1+; POIKILOCYTOSIS 3+; SCHISTOCYTES 2+; TEAR DROP CELLS 1+
== END ==
LOC: M WUC 12:54
PROVIDERS: ATTEND Nurse Practitioner Adult Health
DX: K29.01 Acute gastritis with bleeding (principal); D56.3 Thalassemia minor

== ENCOUNTER → 2017-01-23 | Outpatient (CLI) | payer MEDICARE ==
[~2017-01-23] MED LIST changes: +ACETAMINOPHEN TAB 650MG DOSE (2X325MG) As Ordered ONE; +ACETAMINOPHEN TAB 650MG DOSE (2X325MG) PO SCH; +diphenhydrAMINE 25 MG CAP As Ordered ONE; +diphenhydrAMINE 25 MG CAP PO SCH
== END ==
LOC: M RROUT 09:17
PROVIDERS: ATTEND Internal Medicine
DX: D64.9 Anemia, unspecified (principal)
CPT/HCPCS: 36415; 86850; 86920; P9016

== ENCOUNTER → 2017-01-29 | Outpatient (CLI) | payer MEDICARE ==
[~2017-01-29] MED LIST changes: -ACETAMINOPHEN TAB 650MG DOSE (2X325MG) As Ordered ONE; -ACETAMINOPHEN TAB 650MG DOSE (2X325MG) PO SCH; -diphenhydrAMINE 25 MG CAP As Ordered ONE; -diphenhydrAMINE 25 MG CAP PO SCH
[2017-01-29 18:33] LABS: MEAN CORPUSCULAR HEMOGLOBIN 26.5 pg (27.0-33.0); MEAN CORPUSCULAR HGB CONC 31.8 g/dl (32.0-36.5); MEAN CORPUSCULAR VOLUME 83.2 fl (80.0-96.0); RED CELL DISTRIBUTION WIDTH 23.3 % (11.5-14.5); WHITE BLOOD COUNT 3.5 K/mm3 (4.0-10.0)
[2017-01-29 18:48] LABS: PERCENT SATURATION 79.7 % (19.7-37.4)
== END ==
LOC: M WUC 12:56
PROVIDERS: ATTEND Internal Medicine
DX: D62 Acute posthemorrhagic anemia (principal)